=== PATIENT | female | born 1985 | race Caucasian/White ===

== ENCOUNTER 2016-11-21 07:56 | Emergency (ER) | payer OTHER ==
[2016-11-21 08:07] VITALS: PULSE 71
[2016-11-21 08:48] LABS: Appearance,Urine Cloudy (Clear); Bilirubin,Urine Negative (Negative); Glucose,Urine (UA) Negative (Negative); Ketones,Urine Negative (Negative); Leukocyte Esterase,Urine Negative (Negative); Mucus,Urine Rare /hpf; Nitrite,Urine Negative (Negative); Particle Count 4991; Protein,Urine Negative (Negative); RBC,Urine 2 /hpf (0-5); Specific Gravity,Urine 1.005 (1.001-1.035); Squamous Epithelial Cell,Urine 6 /hpf (0-4); UA Billing (MACRO vs. MICRO) MICRO; Urobilinogen,Urine <2.0 mg/dL (<2.0); WBC,Urine 1 /hpf (0-5)
--- NOTE | 2016-11-21 09:33 | ED ---
Female Urogenital HPI - General Chief complaint: Urogenital Stated complaint: pelvic pain Time Seen by Provider: 11/21/16 08:29 Source: patient, RN notes reviewed, old records reviewed Mode of arrival: ambulatory Limitations: no limitations - History of Present Illness Initial comments: 31-year-old female presents to the emergency Department chief complaint of dysuria for the past week. 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 She initially thought she was having symptoms of urinary tract infection and was getting somewhat better after taking the antibiotic for skin condition. Patient sates she still has a week of this left. Patient reports that since then she's had some irritation in her vaginal area. Patient reports no significant discharge. Denies any concern for secondary transmitted diseases. Patient states that she has no abdominal pain. Denies any back pain. Last Menstrual Period: 10/27/16 - Related Data Home Medications Medication Instructions Recorded Confirmed Cholecalciferol [Vitamin D3] 5,000 unit PO DAILY 11/21/16 11/21/16 Dextroamphetamine/Amphetamine 25 mg PO QAM 11/21/16 11/21/16 [Adderall Xr] Doxycycline Hyclate [Vibramycin] 100 mg PO BID 11/21/16 11/21/16 Previous Rx's Medication Instructions Recorded Fluconazole [Diflucan] 150 mg PO ONCE #3 tab 11/21/16 Allergies Allergy/AdvReac Type Severity Reaction Status Date / Time Penicillins Allergy Unknown Verified 11/21/16 08:21 Childhood Review of Systems ROS Statement: Those systems with pertinent positive or pertinent negative responses have been documented in the HPI. ROS Other: All systems not noted in ROS Statement are negative. Past Medical History Past Medical History: Skin Disorder History of Any Multi-Drug Resistant Organisms: None Reported Past Psychological History: ADD/ADHD Smoking Status: Former smoker Past Alcohol Use History: Occasional Past Drug Use History: None Reported General Exam - General Exam Comments Initial Comments: 31-year-old female. No acute distress. General: Well appearing, well nourished, in no distress. Oriented x 3, normal mood and affect . Ambulating without difficulty. Skin: Good turgor, no rash, unusual bruising or prominent lesions Hair: Normal texture and distribution. HEENT: Head: Normocephalic, atraumatic, no visible or palpable masses, depressions, or scaring. Eyes: Visual acuity intact, conjunctiva clear, sclera non-icteric, EOM intact, PERRL. Ears: EACs clear, TMs translucent & cone of light visualized. hearing intact. Nose: No external lesions, mucosa non-inflamed, septum and turbinates normal Mouth: Mucous membranes moist, no mucosal lesions. Teeth/Gums: No obvious caries or periodontal disease. No gingival inflammation or significant resorption. Pharynx: Mucosa non-inflamed, no tonsillar hypertrophy or exudate Neck: Supple, without lesions, bruits, or adenopathy, thyroid non-enlarged and non-tender Heart: No cardiomegaly or thrills; regular rate and rhythm, no murmur or gallop Lungs: Clear to auscultation and percussion Abdomen: Bowel sounds normal, no tenderness, organomegaly, masses, or hernia Back: Spine normal without deformity or tenderness, no CVA tenderness Rectal: Normal sphincter tone, no hemorrhoids or masses palpable Extremities: No amputations or deformities, cyanosis, edema or varicosities, peripheral pulses intact Musculoskeletal: Normal gait and station. No misalignment, asymmetry, crepitation, defects, tenderness, masses, effusions, decreased range of motion, instability, atrophy or abnormal strength or tone in the head, neck, spine, ribs , pelvis or extremities. Neurologic: CN 2-12 normal. Sensation to pain, touch, and proprioception normal. DTRs normal in upper and lower extremities. No pathologic reflexes. Psychiatric: Oriented X3, intact recent and remote memory, judgment and insight , normal mood and affect. Pelvic: Vagina and cervix with scant white discharge. Discharge is adherent to the vaginal wall consistent with candidiasis infection. Limitations: no limitations Course Vital Signs 11/21/16 08:01 Temperature 97.2 F L Pulse Rate 71 Respiratory 18 Rate Blood Pressure 123/81 O2 Sat by Pulse 98 Oximetry Medical Decision Making - Medical Decision Making 31-year-old female chief complaint of dysuria and vaginal irritation for the past few days. Patient is currently taking antibiotics for skin condition that was also treating a urinary tract infection. Patient denies any concern for sexual transmitted diseases. Pelvic exam shows scant white vaginal discharge adherent to the brown consistent with recent infection. Patient will be started on oral Diflucan. Discussed continuing her antibiotic. Patient denies follow-up with her primary care provider. Patient's history plan will comply. Return parameters were discussed. - Lab Data Lab Results 11/21/16 11/21/16 Range/Units 08:20 08:20 Urine Color Light Yellow Urine Appearance Cloudy H (Clear) Urine pH 6.0 (5.0-8.0) Ur Specific [place] 1.005 (1.001-1.035) Urine Protein Negative (Negative) Urine Glucose (UA) Negative (Negative) Urine Ketones Negative (Negative) Urine Blood Small H (Negative) Urine Nitrite Negative (Negative) Urine Bilirubin Negative (Negative) Urine Urobilinogen <2.0 (<2.0) mg/dL Ur Leukocyte Esterase Negative (Negative) Urine RBC 2 (0-5) /hpf Urine WBC 1 (0-5) /hpf Ur Squamous Epith Cells 6 H (0-4) /hpf Urine Mucus Rare H (None) /hpf Urine HCG, Qual Not Detected (Not Detectd) Disposition Clinical Impression: Vaginal yeast infection Disposition: HOME SELF-CARE Condition: Good Instructions: Urinary Tract Infection in Women (ED), Vulvovaginal Candidiasis ( ED) Additional Instructions: Take the Diflucan prescription. Continue your antibiotics. Follow-up with primary care provider or telephonic case manager if symptoms continue to persist. Return to emergency department if any alarming signs or symptoms occur. Prescriptions: Fluconazole [Diflucan] 150 mg PO ONCE #3 tab Referrals: Michael Madison DO [Primary Care Provider] - 1-2 days Time of Disposition: 09:32
[2016-11-21 09:49] VITALS: BP 113/66; RESP 15; TEMP 97.4
== END 2016-11-21 09:42 | disposition home or self-care (01) ==
LOC: EC 07:56
DX: B37.3 Candidiasis of vulva and vagina (principal); F90.9 Attention-deficit hyperactivity disorder, unspecified type; L98.9 Disorder of the skin and subcutaneous tissue, unspecified; Z87.891 Personal history of nicotine dependence; Z79.899 Other long term (current) drug therapy; Z88.0 Allergy status to penicillin
CPT/HCPCS: 81001; 81025; 87070; 87205; 87491; 87591; 87808; 99284

== ENCOUNTER → 2023-03-20 | Outpatient (CLI) | payer BC ==
[2023-03-20 08:04] VITALS: BP 140/81; PULSE 115; RESP 16; TEMP 98.1
--- NOTE | 2023-03-20 12:25 | P.PAINPG ---
PQRS Measure Charge Sheet Comment: HISTORY OF PRESENT ILLNESS: A 38 yr old female as a referral from Tim IGLESIAS presents today w severe and chronic LBP x 6 mo secondary to DDD, spondylosis and facet arthropathy without myelopathy for evaluation. Pt states pain level is provoked at 9 /10 in intensity, constant, localized in the lower lumbar, sharp in character w shooting pain towards the LLE. Pain is provoked by walking/ standing for periods of 30 min or more. Pain is alleviated by chiropractic treatments weekly x 4 mo which ended in Jan 2023, medications (Ibu), topical and OTC patches, reclining and rest. Oswestry axial pain score at 18. PMH: OA, ADD/ADHD PSH: RUE Repair s/p Fracture in childhood SH: Former tobacco user, Occasional ETOH use, No illicit drug use FH: Non contributory All: See list Meds: See list REVIEW OF ORGAN SYSTEMS: CONSTITUTIONAL: No fevers or chills. No recent weight loss. NEUROLOGICAL: + numbness and tingling along the distal extremities. No seizure disorders or headaches. MUSCULOSKELETAL: + pain PSYCHIATRIC: Denies current depression or suicidal thoughts. Physical Examinations : Constitutional : Cooperative , not in acute distress . Neurologic : Cranial nerve II to XII intact. No focal neurological deficits. Psychiatric : alert & oriented x 3. Matching mood & appropriate affect. Judgment & insight intact. Musculoskeletal : Cervical Spine Motor strength in the deltoid and biceps: Normal right side. Normal Left side Motor strength biceps and the wrist extensors: Normal right side . Normal left side Motor strength in the triceps muscle: Normal right side. Normal left side Deep tendon reflexes: Normal at the biceps. Normal at Brachioradialis. Normal at triceps Vertebral body tenderness to deep palpation over Cervical facet loading test: positive bilaterally Spurling test: positive bilaterally Neck distraction test: positive bilaterally Benitez sign: positive bilaterally Lumbar spine Motor strength lower extremities ,thigh and legs 5/5 Right side , 5/5 Left side Deep tendon reflexes : Normal Knee Jerk. Normal Ankle Jerk Vertebral body tenderness over Harrell Test positive Lumbar facet Loading Test: positive Right / positive Left Range of motion of the lumbar spine Flexion 30 degrees, extension 10 degrees Straight Leg Raise test: Left/ Right positive at degree Brandon test: positive right / positive left. Severe tenderness over the Sacroiliac joint on the Right / Left sides Gaenslen test: positive bilaterally Seated flexion test: positive bilaterally. Sacral spine : Severe tenderness over the Sacroiliac joint: right side / left side Range of motion: Flexion of the lumbar spine <60 degrees Range of motion: Extension of the lumbar spine <20 degrees Gaenslen's Test positive Brandon test: positive right side / left side Thigh Thrust Test Sacral Thrust Test Imaging: None on file Assessment/ Plan : Lumbar DDD Recommendation of x ray lumbar spine M51.36. May follow up in 2 wks for a re evaluation. All questions answered. I have spent greater than 30 minutes on patient care today. Dr Moss was available by phone for the evaluation of this patient. The time was used to review the medical records including relevant urine studies and Prescription history (MAPs), review of the available imaging, evaluation and examination of the patient, coordination of care with the medical staff and if applicable referring physicians, as well as creation of the medical record PQRS Narrative: Smoking Status Former smoker Home Medications: Ambulatory Orders Cholecalciferol [Vitamin D3] 5,000 unit PO DAILY 11/21/16 Dextroamphetamine/Amphetamine [Adderall Xr] 25 mg PO QAM 11/21/16 Doxycycline Hyclate [Vibramycin] 100 mg PO BID 11/21/16 Fluconazole [Diflucan] 150 mg PO ONCE #3 tab 11/21/16 Controlled Substance Measures - Controlled Substance Measures Is patient prescribed a controlled substance at discharge?: No
== END ==
LOC: PNWHC3 07:24
PROVIDERS: ATTEND Specialist
DX: M51.36 Other intervertebral disc degeneration, lumbar region (principal); M47.816 Spondylosis without myelopathy or radiculopathy, lumbar region; M19.90 Unspecified osteoarthritis, unspecified site; F98.8 Other specified behavioral and emotional disorders with onset usually occurring in childhood and adolescence; F90.9 Attention-deficit hyperactivity disorder, unspecified type; Z87.891 Personal history of nicotine dependence; Z88.0 Allergy status to penicillin
CPT/HCPCS: 99211

== ENCOUNTER → 2023-03-22 | Outpatient (CLI) | payer BC ==
--- NOTE | 2023-03-22 11:05 | XR ---
EXAMINATION TYPE: XR lumbar spine 2 or 3V DATE OF EXAM: 03/22/2023 8:31 AM CLINICAL INDICATION:Female, 38 years old with history of M51.36 lumbar pain; PHH COMPARISON: None TECHNIQUE: XR lumbar spine 2 or 3V - FINDINGS: There are 5 lumbar-type vertebral bodies, with partial sacralization of L5 on the right. Alignment an d disc interspacing is normal. Vertebral body heights are preserved. No evidence of acute compression fracture. Mild/moderate stool in the visualized colon. Several small radiodensities suggesting calci fications over the left upper quadrant, up to 3.7 mm in size, specific but could relate to renal calc kinga. IMPRESSION: No acute radiographic abnormality of the lumbar spine. Small calcific foci over the left abdomen, could relate to renal calculi.
== END | disposition home or self-care (01) ==
LOC: RADXRMAIN 08:03
PROVIDERS: ATTEND Specialist
DX: M51.36 Other intervertebral disc degeneration, lumbar region (principal)
CPT/HCPCS: 72100

== ENCOUNTER → 2023-06-19 | Outpatient (CLI) | payer BC ==
[2023-06-19 08:57] VITALS: BP 123/78; PULSE 123; RESP 16; TEMP 96.8
--- NOTE | 2023-06-19 14:22 | P.PAINPG ---
PQRS Measure Charge Sheet Comment: HISTORY OF PRESENT ILLNESS: A 38 yr old female presents today w severe and chronic LBP x 6 mo secondary to DDD, spondylosis and facet arthropathy without myelopathy for evaluation. Pt states pain level is provoked at 9 /10 in intensity, constant, localized in the lower lumbar, sharp in character w shooting pain towards the LLE. Pain is provoked by walking/ standing for periods of 30 min or more. Pain is alleviated by chiropractic treatments weekly x 4 mo which ended in Jan 2023, medications, topical, reclining and rest. Oswestry axial pain score at 18. Interventional procedures include Medications include Ibu, Salon Pas patches REVIEW OF ORGAN SYSTEMS: CONSTITUTIONAL: No fevers or chills. No recent weight loss. NEUROLOGICAL: + numbness and tingling along the distal extremities. No seizure disorders or headaches. MUSCULOSKELETAL: + pain PSYCHIATRIC: Denies current depression or suicidal thoughts. Physical Examinations : Constitutional : Cooperative , not in acute distress . Neurologic : Cranial nerve II to XII intact. No focal neurological deficits. Psychiatric : alert & oriented x 3. Matching mood & appropriate affect. Judgment & insight intact. Musculoskeletal : Cervical Spine Motor strength in the deltoid and biceps: Normal right side. Normal Left side Motor strength biceps and the wrist extensors: Normal right side . Normal left side Motor strength in the triceps muscle: Normal right side. Normal left side Deep tendon reflexes: Normal at the biceps. Normal at Brachioradialis. Normal at triceps Vertebral body tenderness to deep palpation over Cervical facet loading test: positive bilaterally Spurling test: positive bilaterally Neck distraction test: positive bilaterally Benitez sign: positive bilaterally Lumbar spine Motor strength lower extremities ,thigh and legs 5/5 Right side , 5/5 Left side Deep tendon reflexes : Normal Knee Jerk. Normal Ankle Jerk Vertebral body tenderness over Harrell Test positive Lumbar facet Loading Test: positive Right / positive Left Range of motion of the lumbar spine Flexion 30 degrees, extension 10 degrees Straight Leg Raise test: Left/ Right positive at degree Brandon test: positive right / positive left. Severe tenderness over the Sacroiliac joint on the Right / Left sides Gaenslen test: positive bilaterally Seated flexion test: positive bilaterally. Sacral spine : Severe tenderness over the Sacroiliac joint: right side / left side Range of motion: Flexion of the lumbar spine <60 degrees Range of motion: Extension of the lumbar spine <20 degrees Gaenslen's Test positive Brandon test: positive right side / left side Thigh Thrust Test Sacral Thrust Test Imaging: Lumbar x ray from 03/22/23 reviewed Assessment/ Plan : Lumbar DDD Recommendation of MRI non contrast of the lumbar spine M51.36 Recommendation of Neurontin 100mg #60 w 1 RF. Use, side effects, adverse reactions and safe storage discussed. Narcotic agreement signed 06/19/23. RTC in 2 wks for a re evaluation. All questions answered. I have spent greater than 30 minutes on patient care today. Dr Moss was available by phone for the evaluation of this patient. The time was used to review the medical records including relevant urine studies and Prescription history (MAPs), review of the available imaging, evaluation and examination of the patient, coordination of care with the medical staff and if applicable referring physicians, as well as creation of the medical record PQRS Narrative: Smoking Status Former smoker Hx Alcohol Use (MH) Yes: OCCASIONAL Home Medications: Ambulatory Orders Cholecalciferol [Vitamin D3] 5,000 unit PO DAILY 11/21/16 Dextroamphetamine/Amphetamine [Adderall Xr] 25 mg PO QAM 11/21/16 Doxycycline Hyclate [Vibramycin] 100 mg PO BID 11/21/16 Fluconazole [Diflucan] 150 mg PO ONCE #3 tab 11/21/16 Controlled Substance Measures - Controlled Substance Measures Is patient prescribed a controlled substance at discharge?: Yes When asked, does pt state using other controlled substances?: Yes If prescribed controlled substance>3 days was MAPS reviewed?: Yes If Rx opioid, was Start Talking consent form obtained?: Yes Was information provided regarding opioid addiction?: Yes
== END ==
LOC: PNWHC3 08:12
PROVIDERS: ATTEND Specialist
DX: M51.36 Other intervertebral disc degeneration, lumbar region (principal); Z87.891 Personal history of nicotine dependence; Z88.0 Allergy status to penicillin
CPT/HCPCS: 99211

== ENCOUNTER → 2023-07-04 | Outpatient (CLI) | payer BC ==
--- NOTE | 2023-07-06 09:55 | MR ---
EXAMINATION TYPE: MR lumbar spine wo con DATE OF EXAM: 07/04/2023 7:10 PM CLINICAL INDICATION:Female, 38 years old with history of M51.36 DISC DEGENERATION, LUMBAR REGION; PHH , Lower back pain, LLE radiculopathy. COMPARISON: None TECHNIQUE: Multi planar, multi sequence imaging was performed utilizing: T1-weighted, T2-weighted, a nd turbo inversion recovery imaging of the lumbar spine. IV Contrast: None (None if empty) FINDINGS: Alignment: The lumbar vertebral bodies have preserved heights and alignment. Cord: The conus medullaris and the distal spinal cord appear unremarkable with regards to their signa l intensity and morphology. Bones/Discs: Minimal degeneration changes throughout the spine with osteophyte formation and facet torito int arthropathy. Intervertebral disc signal is maintained. T12-L1: No evidence of significant spinal canal stenosis or neural foraminal stenosis. L1-L2: No evidence of significant spinal canal stenosis or neural foraminal stenosis. L2-L3: No evidence of significant spinal canal stenosis or neural foraminal stenosis. L3-L4: No evidence of significant spinal canal stenosis or neural foraminal stenosis. L4-L5: There is a large disc extrusion/protrusion with moderate to severe spinal canal stenosis which displaces the cauda equina series 801 image 9. The neural foramen are patent. L5-S1: The disc is rounded posterior morphology without significant spinal canal stenosis. Facet join t arthropathy with mild bilateral neural foraminal stenosis. No significant spinal canal or neural foraminal stenosis in the remainder of the visualized levels. Other findings: None. IMPRESSION: L4-L5 large disc herniation which displaces the cauda equina resulting moderate to severe spinal linda l stenosis.
== END | disposition home or self-care (01) ==
LOC: RADMRIMAIN 18:20
PROVIDERS: ATTEND Specialist
DX: M51.36 Other intervertebral disc degeneration, lumbar region (principal); M48.061 Spinal stenosis, lumbar region without neurogenic claudication
CPT/HCPCS: 72148

== ENCOUNTER → 2023-07-31 | Outpatient (CLI) | payer BC ==
[2023-07-31 08:15] VITALS: BP 128/72; PULSE 89; RESP 89; TEMP 97.9
--- NOTE | 2023-07-31 12:50 | P.PAINPG ---
PQRS Measure Charge Sheet Comment: HISTORY OF PRESENT ILLNESS: A 38 yr old female presents today w severe and chronic LBP x 6 mo secondary to DDD, spondylosis and facet arthropathy without myelopathy for evaluation. Pt states pain level is provoked at 7 /10 in intensity, intermittent, localized in the lower lumbar, sharp in character w shooting pain towards the L knee. Pain is provoked by walking/ standing for periods of 30 min or more. Pain is alleviated by chiropractic treatments weekly x 4 mo which ended in Jan 2023, medications, topical, reclining and rest. Oswestry axial pain score at 18. Interventional procedures include DENIES Medications include Ibu, Salon Pas patches REVIEW OF ORGAN SYSTEMS: CONSTITUTIONAL: No fevers or chills. No recent weight loss. NEUROLOGICAL: + numbness and tingling along the distal extremities. No seizure disorders or headaches. MUSCULOSKELETAL: + pain PSYCHIATRIC: Denies current depression or suicidal thoughts. Physical Examinations : Constitutional : Cooperative , not in acute distress . Neurologic : Cranial nerve II to XII intact. No focal neurological deficits. Psychiatric : alert & oriented x 3. Matching mood & appropriate affect. Judgment & insight intact. Musculoskeletal : Cervical Spine Motor strength in the deltoid and biceps: Normal right side. Normal Left side Motor strength biceps and the wrist extensors: Normal right side . Normal left side Motor strength in the triceps muscle: Normal right side. Normal left side Deep tendon reflexes: Normal at the biceps. Normal at Brachioradialis. Normal at triceps Vertebral body tenderness to deep palpation over Cervical facet loading test: positive bilaterally Spurling test: positive bilaterally Neck distraction test: positive bilaterally Benitez sign: positive bilaterally Lumbar spine Motor strength lower extremities ,thigh and legs 5/5 Right side , 5/5 Left side Deep tendon reflexes : Normal Knee Jerk. Normal Ankle Jerk Vertebral body tenderness over L4 Harrell Test positive L4-L5 L > R Lumbar facet Loading Test: positive Right / positive Left Range of motion of the lumbar spine Flexion 30 degrees, extension 10 degrees Straight Leg Raise test: Left/ Right positive at degree Brandon test: positive right / positive left. Severe tenderness over the Sacroiliac joint on the Right / Left sides Gaenslen test: positive bilaterally Seated flexion test: positive bilaterally. Sacral spine : Severe tenderness over the Sacroiliac joint: right side / left side Range of motion: Flexion of the lumbar spine <60 degrees Range of motion: Extension of the lumbar spine <20 degrees Gaenslen's Test positive Brandon test: positive right side / left side Thigh Thrust Test Sacral Thrust Test Imaging: Lumbar x ray from 03/22/23 reviewed Noncontrast of the lumbar spine from 07/04/2023 reviewed Assessment/ Plan : Lumbar DDD Recommendation of DWAYNE L4-L5 #1 and medication management. Risks, benefits of procedure discussed and pt verbalized understanding. Protocol for discontinuation/ continuation of medications lisa procedure discussed. Neurontin 100mg #60 w 1 RF. UDS collected 07/31/23. Use, side effects, adverse reactions and safe storage discussed. Narcotic agreement signed 06/19/23. All questions answered. I have spent greater than 30 minutes on patient care today. Dr Moss was available by phone for the evaluation of this patient. The time was used to review the medical records including relevant urine studies and Prescription history (MAPs), review of the available imaging, evaluation and examination of the patient, coordination of care with the medical staff and if applicable referring physicians, as well as creation of the medical record - Pain Location Bilateral Lower Back Non-Pharmacological Interventions: Heat, Ice, Position/Reposition Pharmacological Interventions: Medication PQRS Narrative: Smoking Status Former smoker Hx Alcohol Use (MH) Yes: OCCASIONAL Home Medications: Ambulatory Orders Cholecalciferol [Vitamin D3] 5,000 unit PO DAILY 11/21/16 Dextroamphetamine/Amphetamine [Adderall Xr] 25 mg PO QAM 11/21/16 Doxycycline Hyclate [Vibramycin] 100 mg PO BID 11/21/16 Fluconazole [Diflucan] 150 mg PO ONCE #3 tab 11/21/16 Gabapentin [Neurontin] 100 mg PO BID 30 Days #60 cap 07/31/23 Controlled Substance Measures - Controlled Substance Measures Is patient prescribed a controlled substance at discharge?: Yes When asked, does pt state using other controlled substances?: No If prescribed controlled substance>3 days was MAPS reviewed?: Yes
== END ==
LOC: PNWHC3 07:38
PROVIDERS: ATTEND Specialist
DX: M51.36 Other intervertebral disc degeneration, lumbar region (principal); M47.816 Spondylosis without myelopathy or radiculopathy, lumbar region
CPT/HCPCS: 80307; 99212

== ENCOUNTER → 2023-08-26 | Day surgery (SDC) | payer BC ==
[2023-08-22 10:03] VITALS: BMI 27.4
[~2023-08-26] MED LIST: IOPAMIDOL M200 10 ML VIAL ONE; LACTATED RINGERS 1,000 ML IV SCH; methylPREDNISolone ACETATE 80 MG/ML 1 ML VIAL ONE
[2023-08-26 08:25] VITALS: RESP 16; TEMP 97.2
--- NOTE | 2023-08-26 09:27 | P.PCN ---
Date of Procedure: 08/26/23 Procedure(s) Performed: PREOPERATIVE DIAGNOSIS: 1- Lumbar Degenerative Disc Diseases 2-Lumbar spondylosis with Facet arthropathy without myelopathy. POSTOPERATIVE DIAGNOSIS: 1-lumbar degenerative disc disease. 2-lumbar spondylosis with facet arthropathy without myelopathy. PROCEDURE 1. Lumbar epidural steroid injection under fluoroscopic guidance at the L4-5 level. (Fluoroscopy imaging was available in radiology department) 2. Lumbar epidurogram. ANESTHESIA: Lidocaine 1% 3 and then only. EBL: Minimal PROCEDURE INDICATION: The patient with low back pain and radiculitis symptoms unresponsive to conservative treatment. Fluoroscopy was used to optimize visualization of the needle placement and to maximize safety. PROCEDURE DESCRIPTION / TECHNIQUE: The patient was seen and identified in the preoperative area. Risks, benefits, complications including but not limited to infections ,bleeding ,allergic reaction to the medications ,nerve damage and not complete pain releife , and alternatives were discussed with the patient. The patient agreed to proceed with the procedure and signed the consent, and vital signs were stable. Patient was taken to the OR and time out was completed. The patient was placed in the prone position on procedure table and a pillow was placed under the abdo men to reduce lumbar lordosis. The lumbosacral area was prepped and draped in the usual sterile fashion.ere closely monitored during the procedure. Vital signs was monitered during the entire procedure. Using anterior-posterior fluoroscopy, the L4-5 interlaminar space was identified and the skin over this site was marked and then infiltrated with 1% lidocaine subcutaneously. Subsequently, a 20-gauge Tuohy epidural needle was inserted and advanced toward the epidural space using the ``Loss of resistance technique and guided by AP and lateral fluoroscopy. The correct needle position in the ep idural space was verified with the injection of 2 mL of the water soluble contrast dye Isovue 200 contrast and observing an excellent epidurogram with the epidural spread of the dye, after negative aspiration for blood and CSF and in the absence of paresthesias. Again after negative aspiration, a 6 ml mixture containing 80 mg of Depo-medrol ( Preservetive Free ), and 2 ml of preservative free Normal Saline, and 2 ml of preservative free lidocaine 1% solution was injected and a washout of epidurogram was seen. Needle was withdrawn intact, skin was cleansed, and bandages were applied. COMPLICATIONS: None DISPOSITION / PLANS: The patient was placed in a supine position and transferred to the recovery area in a stable condition for observation. There was no evidence of lower extremity motor or sensory deficit after the procedure. Patient was discharged from the recovery room after meeting discharge criteria. Home discharge instructions were given to the patient by the staff. The patient was reexamined prior to discharge. The patient will schedule a follow up in the clinic in 2-4 weeks.
[2023-08-26 09:48] VITALS: BP 120/80; PULSE 95
--- NOTE | 2023-08-26 10:22 | FL ---
EXAMINATION TYPE: FL guided pain mgmt statistic Intraoperative/procedural fluoroscopic services were provided. Total fluoroscopy time is 2.7 seconds with a total of 1 submitted images to PACS. Please se e the operative/procedural note for further details. DAP: [id number] mGym2
== END ==
LOC: ORPAIN 07:39
PROVIDERS: ATTEND Specialist
DX: M51.16 Intervertebral disc disorders with radiculopathy, lumbar region (principal); M47.26 Other spondylosis with radiculopathy, lumbar region; Z88.0 Allergy status to penicillin
CPT/HCPCS: 81025; 62323; J1040; Q9966

== ENCOUNTER → 2023-10-23 | Outpatient (CLI) | payer BC ==
[2023-10-23 09:25] VITALS: BP 121/83; PULSE 107; RESP 16
--- NOTE | 2023-10-23 14:30 | P.PAINPG ---
PQRS Measure Charge Sheet Comment: HISTORY OF PRESENT ILLNESS: A 38 yr old female presents today w severe and chronic LBP x 6 mo secondary to DDD, spondylosis and facet arthropathy without myelopathy for evaluation s/p DWAYNE L4-L5 #1. Pt states she experienced 100 % pain relief x 4 wks s/p procedure. Pt states pain level is provoked at 8 /10 in intensity, intermittent, localized in the lower lumbar, throbbing in character w shooting pain towards the RLE. Pain is provoked by walking/ standing for periods of 30 min or more. Pain is alleviated by chiropractic treatments weekly x 4 mo which ended in Jan 2023, medications, topical, reclining and rest. Oswestry axial pain score at 17. Interventional procedures include DENIES Medications include Ibu, Salon Pas patches REVIEW OF ORGAN SYSTEMS: CONSTITUTIONAL: No fevers or chills. No recent weight loss. NEUROLOGICAL: + numbness and tingling along the distal extremities. No seizure disorders or headaches. MUSCULOSKELETAL: + pain PSYCHIATRIC: Denies current depression or suicidal thoughts. Physical Examinations : Constitutional : Cooperative , not in acute distress . Neurologic : Cranial nerve II to XII intact. No focal neurological deficits. Psychiatric : alert & oriented x 3. Matching mood & appropriate affect. Judgment & insight intact. Musculoskeletal : Cervical Spine Motor strength in the deltoid and biceps: Normal right side. Normal Left side Motor strength biceps and the wrist extensors: Normal right side . Normal left side Motor strength in the triceps muscle: Normal right side. Normal left side Deep tendon reflexes: Normal at the biceps. Normal at Brachioradialis. Normal at triceps Vertebral body tenderness to deep palpation over Cervical facet loading test: positive bilaterally Spurling test: positive bilaterally Neck distraction test: positive bilaterally Benitez sign: positive bilaterally Lumbar spine Motor strength lower extremities ,thigh and legs 5/5 Right side , 5/5 Left side Deep tendon reflexes : Normal Knee Jerk. Normal Ankle Jerk Vertebral body tenderness over L4 Harrell Test positive L4-L5 L > R Lumbar facet Loading Test: positive Right / positive Left Range of motion of the lumbar spine Flexion 30 degrees, extension 10 degrees Straight Leg Raise test: Left/ Right positive at degree Brandon test: positive right / positive left. Severe tenderness over the Sacroiliac joint on the Right / Left sides Gaenslen test: positive bilaterally Seated flexion test: positive bilaterally. Sacral spine : Severe tenderness over the Sacroiliac joint: right side / left side Range of motion: Flexion of the lumbar spine <60 degrees Range of motion: Extension of the lumbar spine <20 degrees Gaenslen's Test positive Brandon test: positive right side / left side Thigh Thrust Test Sacral Thrust Test Imaging: Lumbar x ray from 03/22/23 reviewed Noncontrast of the lumbar spine from 07/04/2023 reviewed Assessment/ Plan : Lumbar DDD Recommendation of DWAYNE R paramedian DWAYNE L4-L5 #2 and medication management. Neurontin 100mg #60 w 1 RF. UDS fr 07/31/23 reviewed and consistent. Use, side effects, adverse reactions and safe storage discussed. Narcotic agreement signed 06/19/23. All questions answered. I have spent greater than 30 minutes on patient care today. Dr Moss was available by phone for the evaluation of this patient. The time was used to review the medical records including relevant urine studies and Prescription history (MAPs), review of the available imaging, evaluation and examination of the patient, coordination of care with the medical staff and if applicable referring physicians, as well as creation of the medical record PQRS Narrative: Smoking Status Former smoker Hx Alcohol Use (MH) Yes: OCCASIONAL Home Medications: Ambulatory Orders Dextroamphetamine/Amphetamine [Adderall Xr] 25 mg PO QAM 11/21/16 Doxycycline Hyclate. 20 mg PO BID 08/22/23 Gabapentin [Neurontin] 100 mg PO BID 30 Days #60 cap 08/26/23 Controlled Substance Measures - Controlled Substance Measures Is patient prescribed a controlled substance at discharge?: Yes When asked, does pt state using other controlled substances?: No If prescribed controlled substance>3 days was MAPS reviewed?: Yes
== END ==
LOC: PNWHC3 07:41
PROVIDERS: ATTEND Specialist
DX: M51.36 Other intervertebral disc degeneration, lumbar region (principal); Z87.891 Personal history of nicotine dependence; Z88.0 Allergy status to penicillin
CPT/HCPCS: 99211

== ENCOUNTER 2023-11-25 07:14 | Day surgery (SDC) | payer BC ==
[2023-11-24 12:35] VITALS: BMI 27.4
[~2023-11-25 07:14] MED LIST changes: -IOPAMIDOL M200 10 ML VIAL ONE; -methylPREDNISolone ACETATE 80 MG/ML 1 ML VIAL ONE
[2023-11-25 08:07] VITALS: TEMP 97.7
[2023-11-25] MEDS ORDERED: methylPREDNISolone ACETATE 80 MG/ML 1 ML VIAL ONE (08:45)
[2023-11-25] MEDS ORDERED: IOPAMIDOL M200 10 ML VIAL ONE (08:45)
--- NOTE | 2023-11-25 08:50 | P.PCN ---
Date of Procedure: 11/25/23 Procedure(s) Performed: PREOPERATIVE DIAGNOSIS: 1- Lumbar Degenerative Disc Diseases 2-Lumbar spondylosis with Facet arthropathy without myelopathy. POSTOPERATIVE DIAGNOSIS: 1-lumbar degenerative disc disease. 2-lumbar spondylosis with facet arthropathy without myelopathy. PROCEDURE 1. Lumbar epidural steroid injection under fluoroscopic guidance at the L4-5 level. (Fluoroscopy imaging was available in radiology department) 2. Lumbar epidurogram. ANESTHESIA: Lidocaine 1% 3 and then only. EBL: Minimal PROCEDURE INDICATION: The patient with low back pain and radiculitis symptoms unresponsive to conservative treatment. Fluoroscopy was used to optimize visualization of the needle placement and to maximize safety. PROCEDURE DESCRIPTION / TECHNIQUE: The patient was seen and identified in the preoperative area. Risks, benefits, complications including but not limited to infections ,bleeding ,allergic reaction to the medications ,nerve damage and not complete pain releife , and alternatives were discussed with the patient. The patient agreed to proceed with the procedure and signed the consent, and vital signs were stable. Patient was taken to the OR and time out was completed. The patient was placed in the prone position on procedure table and a pillow was placed under the abdomen to reduce lumbar lordosis. The lumbosacral area was prepped and draped in the usual sterile fashion.ere closely monitored during the procedure. Vital signs was monitered during the entire procedure. Using anterior-posterior fluoroscopy, the L4-5 interlaminar space was identified and the skin over this site was marked and then infiltrated with 1% lidocaine subcutaneously. Subsequently, a 20-gauge Tuohy epidural needle was inserted and advanced toward the epidural space using the ``Loss of resistance technique and guided by AP and lateral fluoroscopy. The correct needle position in the epi dural space was verified with the injection of 2 mL of the water soluble contrast dye Isovue 200 contrast and observing an excellent epidurogram with the epidural spread of the dye, after negative aspiration for blood and CSF and in the absence of paresthesias. Again after negative aspiration, a 6 ml mixture containing 80 mg of Depo-medrol ( Preservetive Free ), and 2 ml of preservative free Normal Saline, and 2 ml of preservative free lidocaine 1% solution was injected and a washout of epidurogram was seen. Needle was withdrawn intact, skin was cleansed, and bandages were applied. COMPLICATIONS: None DISPOSITION / PLANS: The patient was placed in a supine position and transferred to the recovery area in a stable condition for observation. There was no evidence of lower extremity motor or sensory deficit after the procedure. Patient was discharged from the recovery room after meeting discharge criteria. Home discharge instructions were given to the patient by the staff. The patient was reexamined prior to discharge. The patient will schedule a follow up in the clinic in 2-4 weeks.
[2023-11-25 09:11] VITALS: BP 108/74; PULSE 93; RESP 18
--- NOTE | 2023-11-25 16:12 | FL ---
Intraoperative/procedural fluoroscopic services were provided for lumbar pain management. Total fluor oscopy time is 1.3 seconds with a total of 1 submitted image to PACS. Total DAP [id number] mGym2. Jay atkinson see the operative note for further details.
== END 2023-11-25 09:08 | disposition home or self-care (01) ==
LOC: ORPAIN 07:14
PROVIDERS: ATTEND Specialist
DX: M47.26 Other spondylosis with radiculopathy, lumbar region (principal); M51.16 Intervertebral disc disorders with radiculopathy, lumbar region; Z88.0 Allergy status to penicillin
CPT/HCPCS: 81025; 62323; Q9966; J1010

== ENCOUNTER → 2023-12-18 | Outpatient (CLI) | payer BC ==
[2023-12-18 08:10] VITALS: BP 112/79; PULSE 88; RESP 16
--- NOTE | 2023-12-18 10:33 | P.PAINPG ---
Objective - Vital Signs Vital signs: Vital Signs Temp Pulse 88 12/18/23 08:08 Resp 16 12/18/23 08:08 BP 112/79 12/18/23 08:08 Pulse Ox 95 12/18/23 08:08 FiO2 Intake & Output 12/17/23 12/18/23 12/18/23 18:59 06:59 18:59 Weight 74.389 kg PQRS Measure Charge Sheet Mode of Arrival: Ambulatory Comment: HISTORY OF PRESENT ILLNESS: A 38 yr old female presents today w severe and chronic LBP x 6 mo secondary to DDD, spondylosis and facet arthropathy without myelopathy for evaluation s/p DWAYNE L4-L5 #2. Pt states she experienced 100 % pain relief x 3 wks s/p procedure. Pt states pain level is provoked at 1 /10 in intensity, intermittent, localized in the lower lumbar, throbbing in character w shooting pain towards the RLE. Pain is provoked by walking/ standing for periods of 30 min or more. Pain is alleviated by chiropractic treatments weekly x 4 mo which ended in Jan 2023, medications, topical, reclining and rest. Oswestry axial pain score at 12. Interventional procedures include DWAYNE L4- L5 x2 (08/09, 12/09) Medications include Neurontin, Ibu, Salon Pas patches REVIEW OF ORGAN SYSTEMS: CONSTITUTIONAL: No fevers or chills. No recent weight loss. NEUROLOGICAL: + numbness and tingling along the distal extremities. No seizure disorders or headaches. MUSCULOSKELETAL: + pain PSYCHIATRIC: Denies current depression or suicidal thoughts. Physical Examinations : Constitutional : Cooperative , not in acute distress . Neurologic : Cranial nerve II to XII intact. No focal neurological deficits. Psychiatric : alert & oriented x 3. Matching mood & appropriate affect. Judgment & insight intact. Musculoskeletal : Cervical Spine Motor strength in the deltoid and biceps: Normal right side. Normal Left side Motor strength biceps and the wrist extensors: Normal right side . Normal left side Motor strength in the triceps muscle: Normal right side. Normal left side Deep tendon reflexes: Normal at the biceps. Normal at Brachioradialis. Normal at triceps Vertebral body tenderness to deep palpation over Cervical facet loading test: positive bilaterally Spurling test: positive bilaterally Neck distraction test: positive bilaterally Benitez sign: positive bilaterally Lumbar spine Motor strength lower extremities ,thigh and legs 5/5 Right side , 5/5 Left side Deep tendon reflexes : Normal Knee Jerk. Normal Ankle Jerk Vertebral body tenderness over L4 Harrell Test positive L4-L5 L > R Lumbar facet Loading Test: positive Right / positive Left Range of motion of the lumbar spine Flexion 30 degrees, extension 10 degrees Straight Leg Raise test: Left/ Right positive at degree Brandon test: positive right / positive left. Severe tenderness over the Sacroiliac joint on the Right / Left sides Gaenslen test: positive bilaterally Seated flexion test: positive bilaterally. Sacral spine : Severe tenderness over the Sacroiliac joint: right side / left side Range of motion: Flexion of the lumbar spine <60 degrees Range of motion: Extension of the lumbar spine <20 degrees Gaenslen's Test positive Brandon test: positive right side / left side Thigh Thrust Test Sacral Thrust Test Imaging: Lumbar x ray from 03/22/23 reviewed Noncontrast of the lumbar spine from 07/04/2023 reviewed Assessment/ Plan : L4-L5 large disc bulge, Lumbar stenosis Recommendation of medication management. Neurontin 100mg #60 w 2 RF. UDS fr 07/31/23 reviewed and consistent. Use, side effects, adverse reactions and safe storage discussed. Narcotic agreement signed 06/19/23. All questions answered. I have spent greater than 30 minutes on patient care today. Dr Moss was available by phone for the evaluation of this patient. The time was used to review the medical records including relevant urine studies and Prescription history (MAPs), review of the available imaging, evaluation and examination of the patient, coordination of care with the medical staff and if applicable referring physicians, as well as creation of the medical record - Pain Location Lower Back Pharmacological Interventions: Epidural PQRS Narrative: Smoking Status Former smoker Blood Pressure 112/79 Pain Intensity [Lower Back] 0 Scale Used Numeric (1 - 10) Hx Alcohol Use (MH) Yes: OCCASIONAL Home Medications: Ambulatory Orders Dextroamphetamine/Amphetamine [Adderall Xr] 25 mg PO QAM 11/21/16 Doxycycline Hyclate. 20 mg PO BID 08/22/23 Gabapentin [Neurontin] 100 mg PO BID 30 Days #60 cap 12/18/23 Controlled Substance Measures - Controlled Substance Measures Is patient prescribed a controlled substance at discharge?: No
== END ==
LOC: PNWHC3 07:49
PROVIDERS: ATTEND Specialist
DX: M48.061 Spinal stenosis, lumbar region without neurogenic claudication (principal); M51.26 Other intervertebral disc displacement, lumbar region; Z87.891 Personal history of nicotine dependence; Z88.0 Allergy status to penicillin
CPT/HCPCS: 99211